=== PATIENT | male | born 1995 | race Caucasian/White ===

== ENCOUNTER 2016-11-21 23:21 | Inpatient (IN) | payer OTHER ==
[~2016-11-21] VITALS: Ht 182.9 cm; Wt 78.5 kg
[2016-11-21 23:23] VITALS: BP 123/73; PULSE 101; RESP 20; RESP 38; TEMP 98.7; O2SAT 94
[2016-11-21] MEDS ORDERED: SODIUM CHLORIDE 0.9% FLUSH 10 ML FLUSH IVF PRN (23:30)
[2016-11-21] MEDS ORDERED: AMMONIA AROMATIC INHALANT 0.33 ML NASAL ONE ×2 (23:30)
[2016-11-22] VITALS (20 sets, daily range): BP systolic 85–131; BP diastolic 47–101; PULSE 81–121; RESP 14–23; TEMP 97.9–98.9; O2SAT 92–100
[2016-11-22 00:06] LABS: AUTOMATED NEUTROPHIL # 9.5 TH/MM3 (1.8-7.7); BASOPHIL # 0.1 TH/MM3 (0-0.2); BASOPHIL % 0.8 % (0.0-2.0); EOSINOPHIL # 0.2 TH/MM3 (0-0.4); EOSINOPHIL % 1.1 % (0.0-4.0); HEMATOCRIT 43.1 % (39.0-51.0); HEMO FLAGS DIFF FINAL; LYMPH % 18.4 % (9.0-44.0); LYMPHOCYTE # 2.5 TH/MM3 (1.0-4.8); MEAN CELL VOLUME 90.7 FL (80.0-100.0); MEAN CORPUSCULAR HEMOGLOBIN 30.1 PG (27.0-34.0); MEAN CORPUSCULAR HGB CONC 33.2 % (32.0-36.0); MONO % 10.5 % (0.0-8.0); NEUT % 69.2 % (16.0-70.0); PLATELET COUNT 265 TH/MM3 (150-450); RED BLOOD COUNT 4.76 MIL/MM3 (4.50-5.90); WHITE BLOOD COUNT 13.7 TH/MM3 (4.0-11.0)
--- NOTE | 2016-11-22 00:09 | RADRPT ---
EXAM DATE/TIME: 11/21/2016 23:54 [facility] COMPARISON: No previous studies available for comparison. INDICATIONS : Altered mental status. RADIATION DOSE: 43.04 CTDIvol (mGy) MEDICAL HISTORY : Non-responsive. SURGICAL HISTORY : Non-responsive. ENCOUNTER: Initial ACUITY: 1 day PAIN SCALE: Non-responsive LOCATION: cranial TECHNIQUE: Multiple contiguous axial images were obtained of the head. Using automated exposure control and adj ustment of the mA and/or kV according to patient size, radiation dose was kept as low as reasonably a chievable to obtain optimal diagnostic quality images. FINDINGS: CEREBRUM: The ventricles are normal for age. No evidence of midline shift, mass lesion, hemorrhage or acute in farction. No extra-axial fluid collections are seen. POSTERIOR FOSSA: The cerebellum and brainstem are intact. The 4th ventricle is midline. The cerebellopontine angle i s unremarkable. EXTRACRANIAL: The visualized portion of the orbits is intact. Chronic bilateral sinus disease in the maxillary, eth moid and sphenoid sinuses. SKULL: The calvaria is intact. No evidence of skull fracture. CONCLUSION: 1. Unremarkable CT scan of the brain. 2. Chronic pansinusitis of the maxillary, ethmoid and sphenoid sinuses. Rodolfo Pardo MD on November 22, 2016 at 0:06 Board Certified Radiologist. This report was verified electronically.
[2016-11-22 00:11] LABS: AMPHETAMINE, URINE NEG (NEG); BARBITURATES, URINE NEG (NEG); COCAINE, URINE NEG (NEG)
[2016-11-22 00:20] LABS: BLOOD UREA NITROGEN 9 MG/DL (7-18); GLOMERULAR FILTRATION RATE 86 ML/MIN (>89)
[2016-11-22 00:21] LABS: ALKALINE PHOSPHATASE 61 U/L (45-117); ALT (GPT) 23 U/L (12-78); ANION GAP 9 MEQ/L (5-15); AST (GOT) 34 U/L (15-37); BICARBONATE 24.8 MEQ/L (21.0-32.0); CHLORIDE 109 MEQ/L (98-107); SODIUM (NA) 143 MEQ/L (136-145); TOTAL BILIRUBIN ADULT 0.2 MG/DL (0.2-1.0)
[2016-11-22 00:22] LABS: ACETAMINOPHEN LESS THAN 2.0 MCG/ML (10.0-30.0)
[2016-11-22 00:23] LABS: POTASSIUM 2.9 MEQ/L (3.5-5.1)
[2016-11-22] MEDS ORDERED: SODIUM CHLOR 0.9% 1000 ML INJ 1,000 ML IV ONE (00:30)
--- NOTE | 2016-11-22 00:37 | PD ---
HPI Chief Complaint: Alcohol/Drug Intoxication Time Seen by Provider: 23:24 Travel History International Travel<30 days: No Contact w/Intl Traveler<30days: No Traveled to known affect area: No History of Present Illness HPI Patient is a young, approximately 20s to [id number] male who presents the emergency department via EMS. Patient was apparently seen walking around [facility] in [facility]. He was arrested by police. Shortly after patient was arrested he became unresponsive. Per EMS there is no report of any struggle with police. Patient was unresponsive and EMS had concerns that he may be feigning his symptoms as when they raised patient's arm above his head and dropped it the patient avoided hitting his face. Patient smelled heavily of alcohol on scene and was reportedly seen drinking alcohol prior to EMS dispatch. Patient is unresponsive at this time and not able to participate her history or physical exam. Blood glucose normal. 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 HEAD: Atraumatic. Normocephalic. EYES: Pupils equal and round. 5-6 mm. No scleral icterus. No injection or drainage. ENT: No nasal bleeding or discharge. Mucous membranes pink and moist. NECK: Supple without midline tenderness to palpation CARDIOVASCULAR: Regular rate and rhythm. No murmur appreciated. RESPIRATORY: Tachypneic, but clear to auscultation bilaterally. No respiratory distress. GASTROINTESTINAL: Abdomen soft, non-tender, nondistended. MUSCULOSKELETAL: No obvious deformities. No edema. NEUROLOGICAL: GCS 3. Patient grimaces with ammonia capsules to the nares. However protecting airway with intact gag reflex. PSYCHIATRIC: Deferred given mental status Data Data Last Documented VS Vital Signs Date Time Temp Pulse Resp B/P Pulse Ox O2 Delivery O2 Flow Rate FiO2 11/22/16 02:33 96 17 119/57 98 Ventilator 50 11/21/16 23:23 98.7 Orders Electrocardiogram (11/21/16 23:24) Ammonia (11/21/16 23:24) Complete Blood Count With Diff (11/21/16 23:24) Comprehensive Metabolic Panel (11/21/16 23:24) Ct Brain W/O Iv Contrast(Rout) (11/21/16 23:24) Blood Glucose (11/21/16 23:24) Ecg Monitoring (11/21/16 23:24) Iv Access Insert/Monitor (11/21/16:) Oximetry (11/21/16 23:24) Sodium Chloride 0.9% Flush (Ns Flush) (11/21/16 23:30) Drug Screen, Random Urine (11/21/16:) Alcohol (Ethanol) (11/21/16:) Salicylates (Aspirin) (11/21/16 23:24) Tylenol (Acetaminophen) (11/21/16 23:24) Ammonia Aromatic Inhalant (Aromatic Ammo (11/21/16 23:30) Ammonia Aromatic Inhalant (Aromatic Ammo (11/21/16 23:30) Potassium Chlor 20 Meq Premix (Kcl 20 Me (11/22/16 00:30) Sodium Chlor 0.9% 1000 Ml Inj (Ns 1000 M (11/22/16 00:30) Lactic Acid Sepsis Protocol (11/22/16 01:36) Urinalysis - C+S If Indicated (11/22/16 01:36) Blood Culture (11/22/16 01:36) Chest, Single Ap (11/22/16 01:36) Arterial Blood Gas (Abg) (11/22/16 01:36) Ng Gastric Tube Insert/Monitor (11/22/16 01:36) Urinary Catheter Insert/Apply (11/22/16 01:36) Etomidate Inj (Amidate Inj) (11/22/16 01:45) Succinylcholine Inj (Quelicin Inj) (11/22/16 01:45) Sodium Chloride 0.9% Flush (Ns Flush) (11/22/16 01:45) Restraints Non-Violent YANIV.Q3H (11/22/16 01:36) Lactulose Liq (Lactulose Liq) (11/22/16 02:00) Admit Order (Ed Use Only) (11/22/16 02:51) Labs Laboratory Tests Test 11/21/16 11/21/16 11/22/16 11/22/16 23:40 23:48 01:41 02:20 White Blood Count 13.7 TH/MM3 Red Blood Count 4.76 MIL/MM3 Hemoglobin 14.3 GM/DL Hematocrit 43.1 % Mean Corpuscular Volume 90.7 FL Mean Corpuscular Hemoglobin 30.1 PG Mean Corpuscular Hemoglobin 33.2 % Concent Red Cell Distribution Width 14.0 % Platelet Count 265 TH/MM3 Mean Platelet Volume 8.5 FL Neutrophils (%) (Auto) 69.2 % Lymphocytes (%) (Auto) 18.4 % Monocytes (%) (Auto) 10.5 % Eosinophils (%) (Auto) 1.1 % Basophils (%) (Auto) 0.8 % Neutrophils # (Auto) 9.5 TH/MM3 Lymphocytes # (Auto) 2.5 TH/MM3 Monocytes # (Auto) 1.4 TH/MM3 Eosinophils # (Auto) 0.2 TH/MM3 Basophils # (Auto) 0.1 TH/MM3 CBC Comment DIFF FINAL Differential Comment Sodium Level 143 MEQ/L Potassium Level 2.9 MEQ/L Chloride Level 109 MEQ/L Carbon Dioxide Level 24.8 MEQ/L Anion Gap 9 MEQ/L Blood Urea Nitrogen 9 MG/DL Creatinine 0.78 MG/DL Estimat Glomerular Filtration 86 ML/MIN Rate Random Glucose 113 MG/DL Calcium Level 8.4 MG/DL Total Bilirubin 0.2 MG/DL Aspartate Amino Transf 34 U/L (AST/SGOT) Alanine Aminotransferase 23 U/L (ALT/SGPT) Alkaline Phosphatase 61 U/L Ammonia 75 MCMOL/L Total Protein 7.3 GM/DL Albumin 3.9 GM/DL Salicylates Level 1.8 MG/DL Acetaminophen Level LESS THAN 2.0 MCG/ML Ethyl Alcohol Level 496 MG/DL Urine Color COLORLESS Urine Turbidity CLEAR Urine pH 6.0 Urine Specific [place] 1.004 Urine Protein NEG mg/dL Urine Glucose (UA) NEG mg/dL Urine Ketones NEG mg/dL Urine Occult Blood NEG Urine Nitrite NEG Urine Bilirubin NEG Urine Urobilinogen LESS THAN 2.0 MG/DL Urine Leukocyte Esterase NEG Urine RBC LESS THAN 1 /hpf Urine Hyaline Casts 1 /lpf Microscopic Urinalysis Comment CATH-CULT NOT IND Urine Opiates Screen NEG Urine Barbiturates Screen NEG Urine Amphetamines Screen NEG Urine Benzodiazepines Screen NEG Urine Cocaine Screen NEG Urine Cannabinoids Screen POS Lactic Acid Level 1.2 mmol/L Blood Gas Puncture Site RT BRACHIAL Blood Gas Patient Temperature 98.6 Blood Gas HCO3 23 mmol/L Blood Gas Base Excess -1.9 mmol/L Blood Gas Oxygen Saturation 94 % Arterial Blood pH 7.33 Arterial Blood Partial 46 mmHg Pressure CO2 Arterial Blood Partial 113 mmHG Pressure O2 Arterial Blood Oxygen Content 19.3 Vol % Arterial Blood 3.5 % Carboxyhemoglobin Arterial Blood Methemoglobin 0.8 % Blood Gas Hemoglobin 14.6 G/DL Oxygen Delivery Device VENTILATOR Blood Gas Ventilator Setting AC 14/550/5PEEP Blood Gas Inspired Oxygen 50 % [facility] Medical Decision Making Medical Screen Exam Complete: Yes Emergency Medical Condition: Yes Medical Record Reviewed: Yes Differential Diagnosis Young male here with altered mental status after resting arrested by police. Differential includes alcohol intoxication, closed head injury, skull fracture, ICH, overdose, electrolyte abnormality, hyperammonemia, and less likely feigning symptoms. Narrative Course Patient placed on monitor, IV established and blood obtained. A twelve-lead EKG shows sinus tachycardia, rate 102. No notable ST abnormalities, normal intervals. Ammonia capsules to the naris produces minimal facial grimacing. Patient however is protecting his airway at this time with intact gag reflex when tested with tongue depressor. CT of the brain was obtained and shows no acute abnormalities. CBC, CMP, ammonia, blood alcohol level, aspirin, Tylenol level, urine drug screen were obtained and notable for WBC 13.7. Potassium 2.9. He was replaced with 40 mEq IV. Ammonia slightly elevated at 75. Positive urine cannabinoids. Blood alcohol level 496. Patient does have leukocytosis and tachypnea, mild tachycardia, altered mental status however my suspicion for sepsis is low at this time given his alcohol intoxication and clinical history. No evidence of nuchal rigidity on exam to warrant lumbar puncture. Over the course of the next hour patient's respirations became more labored and tachypneic, heart rate increased into the 120s. Gag reflexes now no longer present. Patient was intubated, please see procedure note. Postintubation chest x-ray shows endotracheal tube in good position. Patient was given lactulose through OG tube. Lactate, urinalysis, blood cultures, ABG were added on to laboratory testing. ABG 7.33, PCO2 46, PO2 113, bicarbonate 23. Lactate normal 1.2. Urinalysis unremarkable. Patient will be admitted for further management. Critical Care Narrative Aggregate critical care time was 50 minutes. Time to perform other separately billable procedures was not included in the critical care time. My time did not include minutes spent treating any other patients simultaneously or on activities that did not directly contribute to the patient's treatment. The services I provided to this patient were to treat and/or prevent clinically significant deterioration that could result in: Cardiopulmonary decompensation, , disability I provided critical care services requiring my management, as noted below: Chart data review, documentation time, medication orders and management, vital sign assessments/reviewing monitor data, ordering and reviewing lab tests, ordering and interpreting/reviewing x-rays and diagnostic studies, care of the patient and discussion of the patient with the admitting physicians. Procedures Procedure Narrative Risks and benefits were not discussed given an emergent condition and altered mental status: INTUBATION: The patient was put in optimal position for the procedure. Rapid sequence intubation was initiated by me using 20 milligrams of etomidate IV and 150] milligrams of succinylcholine IV. The patient was intubated with a 8-0 cuffed endotracheal tube. Tube placement was confirmed by visualization of the tube and balloon passing through the cords, capnometry and subsequent chest x- ray. Breath sounds were equal and well aerated bilaterally postintubation. No breath sounds over stomach. Patient tolerated procedure well. Diagnosis Primary Impression: Acute respiratory failure Qualified Code: J96.01 - Acute respiratory failure with hypoxia Additional Impression: Alcohol intoxication Qualified Code: F10.920 - Alcohol intoxication, uncomplicated Admitting Information Admitting Physician Requests: Admit Zora Castrejon MD November 22, 2016 00:37
[2016-11-22] MEDS: POTASSIUM CHLOR 20 MEQ PREMIX 100 ML IV SCH ×2 (00:40→03:05)
[2016-11-22] MEDS ORDERED: ETOMIDATE 20 MG/10 ML VIAL IVP ONE (01:45)
[2016-11-22] MEDS ORDERED: SUCCINYLCHOLINE CHLORIDE 200 MG/10 ML VIAL IVP ONE (01:45)
[2016-11-22] MEDS ORDERED: SODIUM CHLORIDE 0.9% FLUSH 10 ML FLUSH IVF PRN (01:45)
[2016-11-22] MEDS ORDERED: LACTULOSE SYRUP 20 GM/30 ML CUP OG-TUBE ONE (02:00)
--- NOTE | 2016-11-22 02:18 | RADRPT ---
EXAM DATE/TIME: 11/22/2016 01:48 [facility] COMPARISON: No previous studies available for comparison. INDICATIONS : Post intubation. MEDICAL HISTORY : Unobtainable. SURGICAL HISTORY : Unobtainable. ENCOUNTER: Initial ACUITY: 1 day PAIN SCORE: Non-responsive. LOCATION: Bilateral chest FINDINGS: A single view of the chest demonstrates the lungs to be symmetrically aerated without evidence of mas s, infiltrate or effusion. The endotracheal tube and NG tube are in good position. No evidence of pn eumothorax. The cardiomediastinal contours are unremarkable. Osseous structures are intact. CONCLUSION: 1. ET tube and NG tube are in good position. 2. No pneumothorax. 3. The lungs are grossly clear. Rodolfo Pardo MD on November 22, 2016 at 2:16 Board Certified Radiologist. This report was verified electronically.
[2016-11-22 02:28] LABS: BLOOD, URINE NEG (NEG); GLUCOSE,URINE NEG (NEG); HYALINE CAST, URINE 1 /lpf (RARE); KETONE, URINE NEG (NEG); NITRITE,URINE NEG (NEG); URINE COLOR COLORLESS (YELLW/STRAW)
[2016-11-22 02:29] LABS: COMMENT (UR) CATH-CULT NOT IND; CULTURE IF INDICATED CATH CULTURE NOT IND
[2016-11-22 02:30] LABS: BLOOD GAS BASE EXCESS -1.9 mmol/L (-2-2); BLOOD GAS CARBOXYHEMOGLOBIN 3.5 % (0-4); BLOOD GAS HCO3 23 mmol/L (22-26); BLOOD GAS METHEMOGLOBIN 0.8 % (0-2); BLOOD GAS O2 HGB SATURATION 94 % (90-100); BLOOD GAS OXYGEN CONTENT 19.3 Vol % (12.0-20.0); BLOOD GAS PCO2 46 mmHg (38-42); BLOOD GAS PO2 113 mmHG (61-120); BLOOD GAS TOTAL HGB 14.6 G/DL (12.0-16.0); CRITICAL VALUE NO; DRAW SITE RT BRACHIAL; FIO2 50 %; NUMBER OF ARTERIAL PUNCTURES 1; OXYGEN DEVICE VENTILATOR; STAT YES; TEMP CORR TO 98.6; ULNAR PULSE PRESENT; VENT SETTINGS AC 14/550/5PEEP
[2016-11-22] MEDS ORDERED: FLUMAZENIL 0.5 MG/5 ML VIAL IV PUSH PRN (03:30)
[2016-11-22] MEDS ORDERED: LORazepam 2 MG TAB PO PRN (03:30)
[2016-11-22] MEDS ORDERED: ACETAMINOPHEN 325 MG TAB PO PRN (03:30)
[2016-11-22] MEDS ORDERED: LORazepam 2 MG/ML VIAL IV PRN (03:30)
[2016-11-22] MEDS ORDERED: METOCLOPRAMIDE HCL 10 MG/2 ML VIAL IV PRN (03:30)
[2016-11-22] MEDS ORDERED: LORazepam 1 MG TAB PO PRN (03:30)
[2016-11-22] MEDS ORDERED: MORPHINE SULFATE 4 MG/ML INJ IV PRN (03:30)
[2016-11-22] MEDS ORDERED: MISCELLANEOUS NURSING INFORMATION XX SCH (03:30)
[2016-11-22] MEDS ORDERED: SODIUM CHLORIDE 0.9% FLUSH 10 ML FLUSH PRN (03:30)
[2016-11-22] MEDS ORDERED: CHLORHEXIDINE GLUCONATE 2 % 1 PACK (2 CLOTHS) TOP PRN (03:30)
[2016-11-22] MEDS ORDERED: LORazepam 2 MG/ML VIAL IV PUSH PRN ×2 (03:30)
[2016-11-22] MEDS ORDERED: ONDANSETRON HCL 4 MG/2 ML VIAL IV PRN (03:30)
[2016-11-22] MEDS ORDERED: PROPOFOL 1000 MG/100 ML INJ 100 ML IV SCH (03:30)
[2016-11-22] MEDS ORDERED: RESP: ALBUTEROL 2.5 MG/IPRATROPIUM 0.5 MG NEB (PRN) INH (03:30)
[2016-11-22] MEDS: CHLORHEXIDINE GLUCONATE 2 % 1 PACK (2 CLOTHS) TOP SCH (04:00)
--- NOTE | 2016-11-22 04:05 | HHI.HP ---
HPI Service Critical Care Medicine Primary Care Physician Unknown Admission Diagnosis acute respiratory failure, alcohol intoxication Diagnosis: Travel History International Travel<30 Days: No Contact w/Intl Traveler <30 Da: No Traveled to Known Affected Are: No History of Present Illness 20s to [id number] gentleman presents via EMS. Patient was seen walking around [facility] in [facility]. He was arrested by police for alcohol intoxication at public place. Shortly after he became unresponsive. In the emergency department he was found to be GCS 3 and was intubated by ED attending for an airway protection. Review of Systems ROS Unable to obtain patient is sedated and intubated Past Family Social History Allergies: Coded Allergies: UNOBTAINABLE (Unverified , 11/21/16) Past Medical History Unobtainable Past Surgical History Unobtainable Reported Medications Reported Meds & Active Scripts Active Active Prescriptions or Reported Medications Unobtainable Active Ordered Medications Current Medications Medications (Trade) Dose Ordered Sig/Gregg Route PRN Reason Start Time Stop Time Status Last Admin Dose Admin Sodium Chloride 2 ml 2 ml UNSCH PRN IVF FLUSH AFTER USING IV ACCESS 11/21/16 23:30 Potassium Chloride (KCl 20 Meq Premix Inj) 100 ml @ 50 mls/hr Q2H IV 11/22/16 00:30 11/22/16 04:29 11/22/16 03:05 Sodium Chloride 2 ml 2 ml UNSCH PRN IVF FLUSH AFTER USING IV ACCESS 11/22/16 01:45 Sodium Chloride (NS 1000 ml Inj) 1,000 ml @ 150 mls/hr Q6H40M IV 11/22/16 03:17 Sodium Chloride (NS Flush) 2 ml UNSCH PRN .XX FLUSH AFTER USING IV ACCESS 11/22/16 03:30 Sodium Chloride (NS Flush) 2 ml BID .XX 11/22/16 09:00 Acetaminophen (Tylenol) 650 mg Q6H PRN PO PAIN 1-10 AND/OR FEVER >101F 11/22/16 03:30 Morphine Sulfate (Morphine Inj) 2 mg Q2H PRN IV PAIN SCALE 6 TO 10 11/22/16 03:30 Pantoprazole Sodium (Protonix Inj) 40 mg DAILY IV 11/22/16 09:00 Lorazepam (Ativan Inj) 1 mg Q1H PRN IV Agitation/Sedation 11/22/16 03:30 Ondansetron HCl (Zofran Inj) 4 mg Q6H PRN IV NAUSEA OR VOMITING 11/22/16 03:30 Metoclopramide HCl (Reglan Inj) 10 mg Q6H PRN IV NAUSEA OR VOMITING 11/22/16 03:30 Docusate Sodium (Colace Liq) 100 mg Q12H G-TUBE 11/22/16 03:30 Heparin Sodium (Porcine) (Heparin Inj) 5,000 units Q8H SQ 11/22/16 03:30 Miscellaneous Information 1 Q361D XX 11/22/16 03:30 Chlorhexidine Gluconate (Chlorhexidine 2% Cloth) 3 pack Taper DAILY@04 TOP 11/22/16 04:00 11/18/17 03:59 Chlorhexidine Gluconate 3 pack 3 pack UNSCH PRN TOP HYGIENIC CARE 11/22/16 03:30 Propofol 100 ml @ 0 mls/hr TITRATE IV 11/22/16 03:30 Multivitamins/ Thiamine HCl/ Folic Acid/Sodium Chloride (Mvi-12 Inj/ Thiamine Inj/ Folvite Inj/1/2 NS 500 ml Inj) 511.2 ml @ 125 mls/hr Q24H IV 11/22/16 05:30 Flumazenil (Romazicon Inj) 0.2 mg Q1M PRN IV PUSH SEE LABEL COMMENTS 11/22/16 03:30 Lorazepam (Ativan) 1 mg Q4H PRN PO CIWA 8 - 10 11/22/16 03:30 Lorazepam (Ativan Inj) 1 mg Q4H PRN IV PUSH CIWA 8 - 10 11/22/16 03:30 Lorazepam (Ativan) 2 mg Q2H PRN PO CIWA 11-14 11/22/16 03:30 Lorazepam (Ativan Inj) 2 mg Q2H PRN IV PUSH CIWA 11-14 11/22/16 03:30 Lorazepam (Ativan Inj) 2 mg Q1H PRN IV PUSH CIWA 15-20 11/22/16 03:30 Lorazepam (Ativan Inj) 2 mg Q15M PRN IV PUSH CIWA > 20 11/22/16 03:30 Family History Unobtainable Social History Unobtainable Physical Exam Vital Signs Vital Signs Date Time Temp Pulse Resp B/P Pulse Ox O2 Delivery O2 Flow Rate FiO2 11/22/16 03:40 93 14 118/55 98 5/14/17 03:07 93 14 118/58 98 Ventilator 50 11/22/16 02:33 96 17 119/57 98 Ventilator 50 11/22/16 02:21 96 15 114/54 98 Ventilator 50 11/22/16 02:08 100 17 123/58 96 Ventilator 50 11/22/16 01:55 121 14 131/67 100 Ventilator 50 11/22/16 01:50 97 50 11/22/16 01:45 50 11/21/16 23:23 98.7 101 38 123/73 94 Physical Exam GENERAL: Well-nourished, well-developed patient. Today and intubated SKIN: Warm and dry. HEAD: Normocephalic. EYES: No scleral icterus. No injection or drainage. NECK: Supple, trachea midline. No JVD or lymphadenopathy. CARDIOVASCULAR: Regular rate and rhythm without murmurs, gallops, or rubs. RESPIRATORY: Breath sounds equal bilaterally. No accessory muscle use. GASTROINTESTINAL: Abdomen soft, non-tender, nondistended. MUSCULOSKELETAL: No cyanosis, or edema. BACK: Nontender without obvious deformity. No CVA tenderness. EXTREMITIES: No clubbing cyanosis or edema Laboratory Laboratory Tests Test 11/21/16 11/21/16 11/22/16 11/22/16 23:40 23:48 01:41 02:20 White Blood Count 13.7 Red Blood Count 4.76 Hemoglobin 14.3 Hematocrit 43.1 Mean Corpuscular Volume 90.7 Mean Corpuscular Hemoglobin 30.1 Mean Corpuscular Hemoglobin 33.2 Concent Red Cell Distribution Width 14.0 Platelet Count 265 Mean Platelet Volume 8.5 Neutrophils (%) (Auto) 69.2 Lymphocytes (%) (Auto) 18.4 Monocytes (%) (Auto) 10.5 Eosinophils (%) (Auto) 1.1 Basophils (%) (Auto) 0.8 Neutrophils # (Auto) 9.5 Lymphocytes # (Auto) 2.5 Monocytes # (Auto) 1.4 Eosinophils # (Auto) 0.2 Basophils # (Auto) 0.1 CBC Comment DIFF FINAL Differential Comment Sodium Level 143 Potassium Level 2.9 Chloride Level 109 Carbon Dioxide Level 24.8 Anion Gap 9 Blood Urea Nitrogen 9 Creatinine 0.78 Estimat Glomerular Filtration 86 Rate Random Glucose 113 Calcium Level 8.4 Total Bilirubin 0.2 Aspartate Amino Transf 34 (AST/SGOT) Alanine Aminotransferase 23 (ALT/SGPT) Alkaline Phosphatase 61 Ammonia 75 Total Protein 7.3 Albumin 3.9 Salicylates Level 1.8 Acetaminophen Level LESS THAN 2.0 Ethyl Alcohol Level 496 Urine Color COLORLESS Urine Turbidity CLEAR Urine pH 6.0 Urine Specific [place] 1.004 Urine Protein NEG Urine Glucose (UA) NEG Urine Ketones NEG Urine Occult Blood NEG Urine Nitrite NEG Urine Bilirubin NEG Urine Urobilinogen LESS THAN 2.0 Urine Leukocyte Esterase NEG Urine RBC LESS THAN 1 Urine Hyaline Casts 1 Microscopic Urinalysis Comment CATH-CULT NOT IND Urine Opiates Screen NEG Urine Barbiturates Screen NEG Urine Amphetamines Screen NEG Urine Benzodiazepines Screen NEG Urine Cocaine Screen NEG Urine Cannabinoids Screen POS Lactic Acid Level 1.2 Blood Gas Puncture Site RT BRACHIAL Blood Gas Patient Temperature 98.6 Blood Gas HCO3 23 Blood Gas Base Excess -1.9 Blood Gas Oxygen Saturation 94 Arterial Blood pH 7.33 Arterial Blood Partial 46 Pressure CO2 Arterial Blood Partial 113 Pressure O2 Arterial Blood Oxygen Content 19.3 Arterial Blood 3.5 Carboxyhemoglobin Arterial Blood Methemoglobin 0.8 Blood Gas Hemoglobin 14.6 Oxygen Delivery Device VENTILATOR Blood Gas Ventilator Setting AC 14/550/5PEEP Blood Gas Inspired Oxygen 50 Date/Time Procedure Status Source Growth 11/22/16 01:45 Aerobic Blood Culture Received Blood Peripheral Pending 11/22/16 01:45 Anaerobic Blood Culture Received Blood Peripheral Pending Result Diagram: 11/21/16 2340 11/21/16 2340 Assessment and Plan Assessment and Plan Respiratory failure - Heavy alcohol intoxication - Intubated for an airway protection - No weaning until neurologically improved - CXR and ABG a.m. Altered mental status - Due to alcohol intoxication - Watch for withdrawal - CIWA protocol - Thiamine folate multivitamins IV - Aggressive IV fluids resuscitation DVT GI prophylaxis - Subcutaneous heparin and pantoprazole Critical Care: The total critical care time was 35 minutes. Time to perform other separately billable procedures was not included in the critical care time. Raad Palomino MD November 22, 2016 04:05
[2016-11-22] MEDS ORDERED: SODIUM PHOSPHATE INJ 30 MMOL in SODIUM CHLOR 0.9% 250 ML INJ 240 ML IV PRN (04:15)
[2016-11-22] MEDS ORDERED: POTASSIUM CHLORIDE 25 MEQ EFFERVESCENT TAB PO PRN (04:15)
[2016-11-22] MEDS ORDERED: POTASSIUM PHOSPHATE MONOBASIC 500 MG TAB PO/TUBE PRN (04:15)
[2016-11-22] MEDS ORDERED: MAGNESIUM SULFATE INJ 2 GM in SODIUM CHLORIDE 0.9% INJ 96 ML IV PRN (04:15)
[2016-11-22] MEDS ORDERED: POTASSIUM PHOSPHATE MONOBASIC 500 MG TAB PO PRN (04:15)
[2016-11-22] MEDS ORDERED: POTASSIUM CHLOR 20 MEQ PREMIX 100 ML IV PRN ×2 (04:15)
[2016-11-22] MEDS ORDERED: POTASSIUM CHLOR 40 MEQ PREMIX 100 ML IV PRN ×2 (04:15)
[2016-11-22] MEDS ORDERED: MAGNESIUM SULFATE INJ 4 GM in SODIUM CHLORIDE 0.9% INJ 92 ML IV PRN (04:15)
[2016-11-22] MEDS ORDERED: MAGNESIUM OXIDE 400 MG TAB PO PRN (04:15)
[2016-11-22 04:53] LABS: CKMB 2.3 NG/ML (0.5-3.6)
[2016-11-22] MEDS: DOCUSATE SODIUM 100 MG/10 ML UDC G-TUBE SCH ×2 (05:43→12:59)
[2016-11-22] MEDS: HEPARIN SODIUM - SQ 10,000 UNITS/ML VIAL SQ SCH ×3 (05:43→18:07)
[2016-11-22] MEDS: MULTIVITAMIN INJ 10 ML, THIAMINE INJ 100 MG, FOLIC ACID INJ 1 MG in SODIUM CHLOR 0.45% ... IV SCH (05:43)
[2016-11-22] MEDS: SODIUM CHLOR 0.9% 1000 ML INJ 1,000 ML IV SCH ×2 (05:44→08:59)
[2016-11-22] MEDS: SODIUM CHLORIDE 0.9% FLUSH 10 ML FLUSH SCH ×2 (08:58→21:06)
[2016-11-22] MEDS ORDERED: PANTOPRAZOLE SODIUM 40 MG VIAL IV SCH (09:00)
[2016-11-22] MEDS ORDERED: DEXMEDETOMIDINE HCL 200 MCG/2 ML VIAL ONE (12:18)
[2016-11-22] MEDS ORDERED: DEXMEDETOMIDINE INJ 1,000 MCG in SODIUM CHLOR 0.9% 250 ML INJ 240 ML IV SCH (12:30)
[2016-11-22] MEDS ORDERED: DEXMEDETOMIDINE 200 MCG in NS 50 ML IV SCH (12:30)
[2016-11-22] MEDS: LORazepam 2 MG/ML VIAL IV PUSH PRN ×3 (12:57→19:56)
[2016-11-22] MEDS: cloNIDine HCL 0.3 MG TAB PO SCH ×2 (14:29→21:00)
[2016-11-22] MEDS: chlordiazePOXIDE 25 MG CAP PO SCH ×2 (14:30→21:05)
[2016-11-22] MEDS ORDERED: HALOPERIDOL LACTATE 5 MG/ML AMP IV PRN (14:30)
[2016-11-22] MEDS ORDERED: HYDROmorphone HCL PF 1 MG/ML VIAL IV PUSH PRN (14:30)
--- NOTE | 2016-11-22 14:56 | EKG ---
Date Performed: 11/21/2016 Time Performed: 23:36:18 PTAGE: 21 years EKG: SINUS TACHYCARDIA MODERATE VOLTAGE CRITERIA FOR LVH, CONSIDER NORMAL VARIANT NONSPECIFIC ST ELEVATION ABNORMAL RHYTHM ECG NO PREVIOUS TRACING DOCTOR: Dunia Cardenas Interpretating Date/Time 11/22/2016 14:56:00
[2016-11-23] VITALS (14 sets, daily range): BP systolic 86–135; BP diastolic 48–75; PULSE 73–99; RESP 20–45; TEMP 97.8–102.2; O2SAT 91–98
[2016-11-23] MEDS: LORazepam 2 MG/ML VIAL IV PUSH PRN ×2 (00:24→00:41)
[2016-11-23] MEDS: DEXMEDETOMIDINE INJ 1,000 MCG in SODIUM CHLOR 0.9% 250 ML INJ 240 ML IV SCH ×2 (02:21→13:40)
[2016-11-23] MEDS: DOCUSATE SODIUM 100 MG/10 ML UDC G-TUBE SCH ×2 (03:48→17:20)
[2016-11-23] MEDS: HEPARIN SODIUM - SQ 10,000 UNITS/ML VIAL SQ SCH ×3 (03:48→17:26)
[2016-11-23] MEDS: CHLORHEXIDINE GLUCONATE 2 % 1 PACK (2 CLOTHS) TOP SCH (03:48)
[2016-11-23] MEDS: MULTIVITAMIN INJ 10 ML, THIAMINE INJ 100 MG, FOLIC ACID INJ 1 MG in SODIUM CHLOR 0.45% ... IV SCH (05:11)
[2016-11-23] MEDS: chlordiazePOXIDE 25 MG CAP PO SCH ×3 (05:11→21:43)
[2016-11-23] MEDS: cloNIDine HCL 0.3 MG TAB PO SCH (05:12)
[2016-11-23 05:20] LABS: AUTOMATED NEUTROPHIL # 14.5 TH/MM3 (1.8-7.7); BASOPHIL % 0.2 % (0.0-2.0); EOSINOPHIL % 0.1 % (0.0-4.0); HEMATOCRIT 39.8 % (39.0-51.0); HEMO FLAGS DIFF FINAL; LYMPH % 7.4 % (9.0-44.0); LYMPHOCYTE # 1.3 TH/MM3 (1.0-4.8); MEAN CORPUSCULAR HEMOGLOBIN 29.8 PG (27.0-34.0); MEAN CORPUSCULAR HGB CONC 33.1 % (32.0-36.0); NEUT % 82.3 % (16.0-70.0); PLATELET COUNT 214 TH/MM3 (150-450); RED BLOOD COUNT 4.42 MIL/MM3 (4.50-5.90); RED CELL DISTRIBUTION WIDTH 13.7 % (11.6-17.2); WHITE BLOOD COUNT 17.6 TH/MM3 (4.0-11.0)
[2016-11-23 05:24] LABS: ALKALINE PHOSPHATASE 62 U/L (45-117); ALT (GPT) 17 U/L (12-78); ANION GAP 7 MEQ/L (5-15); AST (GOT) 23 U/L (15-37); BICARBONATE 26.5 MEQ/L (21.0-32.0); BLOOD UREA NITROGEN 6 MG/DL (7-18); CHLORIDE 104 MEQ/L (98-107); GLOMERULAR FILTRATION RATE 150 ML/MIN (>89); MAGNESIUM 1.5 MG/DL (1.5-2.5); POTASSIUM 3.5 MEQ/L (3.5-5.1); SODIUM (NA) 137 MEQ/L (136-145); TOTAL BILIRUBIN ADULT 0.8 MG/DL (0.2-1.0)
--- NOTE | 2016-11-23 08:03 | HHI.CCPN ---
Subjective Remarks/Hospital Course 20s to [id number] gentleman presents via EMS. Patient was seen walking around [facility] in [facility]. He was arrested by police for alcohol intoxication at public place. Shortly after he became unresponsive. In the emergency department he was found to be GCS 3 and was intubated by ED attending for an airway protection. 11/23 Patient s/p self extubation yesterday maxed out on Precedex drip. T 102.2 at 4 am. Objective Vital Signs Date Time Temp Pulse Resp B/P Pulse Ox O2 Delivery O2 Flow Rate FiO2 11/23/16 06:00 79 11/23/16 04:00 102.2 45 121/62 91 11/22/16 19:47 21 11/22/16 12:10 Nasal Cannula 4 Intake and Output 11/22/16 11/22/16 11/23/16 08:00 16:00 00:00 Intake Total 775 ml 1749 ml 2800 ml Output Total 3300.0 ml 1175 ml 350 ml Balance -2525.0 ml 574 ml 2450 ml Result Diagram: 11/23/16 0421 11/23/16 0421 Other Results Laboratory Tests Test 11/23/16 04:21 White Blood Count 17.6 TH/MM3 Red Blood Count 4.42 MIL/MM3 Hemoglobin 13.1 GM/DL Hematocrit 39.8 % Mean Corpuscular Volume 90.0 FL Mean Corpuscular Hemoglobin 29.8 PG Mean Corpuscular Hemoglobin 33.1 % Concent Red Cell Distribution Width 13.7 % Platelet Count 214 TH/MM3 Mean Platelet Volume 8.4 FL Neutrophils (%) (Auto) 82.3 % Lymphocytes (%) (Auto) 7.4 % Monocytes (%) (Auto) 10.0 % Eosinophils (%) (Auto) 0.1 % Basophils (%) (Auto) 0.2 % Neutrophils # (Auto) 14.5 TH/MM3 Lymphocytes # (Auto) 1.3 TH/MM3 Monocytes # (Auto) 1.8 TH/MM3 Eosinophils # (Auto) 0.0 TH/MM3 Basophils # (Auto) 0.0 TH/MM3 CBC Comment DIFF FINAL Differential Comment Sodium Level 137 MEQ/L Potassium Level 3.5 MEQ/L Chloride Level 104 MEQ/L Carbon Dioxide Level 26.5 MEQ/L Anion Gap 7 MEQ/L Blood Urea Nitrogen 6 MG/DL Creatinine 0.67 MG/DL Estimat Glomerular Filtration 150 ML/MIN Rate Random Glucose 95 MG/DL Calcium Level 7.9 MG/DL Phosphorus Level 1.1 MG/DL Magnesium Level 1.5 MG/DL Total Bilirubin 0.8 MG/DL Aspartate Amino Transf 23 U/L (AST/SGOT) Alanine Aminotransferase 17 U/L (ALT/SGPT) Alkaline Phosphatase 62 U/L Total Protein 6.3 GM/DL Albumin 3.2 GM/DL Imaging Last Impressions Chest X-Ray 11/22/16 0136 Signed Impressions: Service Date/Time: Tuesday, November 22, 2016 01:48 - CONCLUSION: 1. ET tube and NG tube are in good position. 2. No pneumothorax. 3. The lungs are grossly clear. Rodolfo Pardo MD Head CT 11/21/16 [id number] Signed Impressions: Service Date/Time: Monday, November 21, 2016 23:54 - CONCLUSION: 1. Unremarkable CT scan of the brain. 2. Chronic pansinusitis of the maxillary, ethmoid and sphenoid sinuses. Rodolfo Pardo MD Objective Remarks GENERAL: Patient is 21 yo lying in bed in NAD. SKIN: Warm and dry. HEAD: Normocephalic. EYES: No scleral icterus. No injection or drainage. NECK: Supple, trachea midline. No JVD or lymphadenopathy. CARDIOVASCULAR: Regular rate and rhythm without murmurs, gallops, or rubs. RESPIRATORY: Breath sounds equal bilaterally. No accessory muscle use. GASTROINTESTINAL: Abdomen soft, non-tender, nondistended. MUSCULOSKELETAL: No cyanosis, or edema. Neuro: On Precedex drip A/P Assessment and Plan 1)Respiratory failure- self extubated 11/22 2)ETOH intoxication 3)Altered mental status - Due to alcohol intoxication 4)Leukocytosis 5)?Hep C 6)Fevers Neuro: Wean off Precedex drip and monitor neuro status UDS+ Cannabinoids. On Librium 50mg Q8, CIWA protocol. Place on Lactulose 15ml TID monitor Ammonia level ( NH4 level 75 on ) Continue with Thiamine/Folic acid Pulm: Continue with oxygen keep sat >92% Aspiration precautions, check CXR CV: Monitor HR and BP keep MAP>65mmHg : Monitor renal function, I/O's, electrolytes replacement per protocol. Will need Phos replacement today. ID: Place on empiric abx ( Zosyn) Monitor for signs of infections ( Fever, WBC) follow up on BC from 11/21. Check sputum cx GI: Speech eval, diet per speech Heme: Monitor CBC Endo: SSI if needed for glycemic control GI prophylaxis- on Protonix DVT prophylaxis- On Heparin SQ Level 3 Kem Silver MD November 23, 2016 08:03
--- NOTE | 2016-11-23 08:22 | RADRPT ---
EXAM DATE/TIME: 11/23/2016 08:04 [place] COMPARISON: CHEST SINGLE AP, November 22, 2016, 1:48. INDICATIONS : Fever. MEDICAL HISTORY : None. SURGICAL HISTORY : None. ENCOUNTER: Subsequent ACUITY: 2 days PAIN SCORE: Non-responsive. LOCATION: Bilateral chest FINDINGS: A single portable frontal view of the chest shows a right lower lobe infiltrate. This is new from the prior study. Left lung is clear. No effusions. Heart is normal in size. Bony structures are unremark able. CONCLUSION: New right lower lobe infiltrate likely infectious in etiology. Ba Palacios Jr., MD on November 23, 2016 at 8:19 Board Certified Radiologist. This report was verified electronically.
[2016-11-23] MEDS: FOLIC ACID 1 MG TAB PO SCH (08:34)
[2016-11-23] MEDS: LACTULOSE SYRUP 20 GM/30 ML CUP PO SCH ×3 (08:34→17:25)
[2016-11-23] MEDS: MULTIVITAMIN TAB PO SCH (08:35)
[2016-11-23] MEDS: THIAMINE HCL 100 MG TAB PO SCH (08:35)
[2016-11-23] MEDS: PIPERACIL-TAZO 4.5 GM PREMIX 100 ML IV SCH ×3 (08:35→21:44)
[2016-11-23] MEDS: SODIUM CHLORIDE 0.9% FLUSH 10 ML FLUSH SCH ×2 (08:36→21:43)
[2016-11-24] VITALS (7 sets, daily range): BP systolic 105–125; BP diastolic 54–65; PULSE 79–98; RESP 16–22; TEMP 97.2–100; O2SAT 92–97
[2016-11-24] MEDS: DEXMEDETOMIDINE INJ 1,000 MCG in SODIUM CHLOR 0.9% 250 ML INJ 240 ML IV SCH (00:07)
[2016-11-24] MEDS: PIPERACIL-TAZO 4.5 GM PREMIX 100 ML IV SCH ×2 (03:03→07:45)
[2016-11-24] MEDS: DOCUSATE SODIUM 100 MG/10 ML UDC G-TUBE SCH ×2 (03:04→13:56)
[2016-11-24] MEDS: HEPARIN SODIUM - SQ 10,000 UNITS/ML VIAL SQ SCH ×2 (03:04→11:30)
[2016-11-24] MEDS: CHLORHEXIDINE GLUCONATE 2 % 1 PACK (2 CLOTHS) TOP SCH (03:04)
[2016-11-24] MEDS: chlordiazePOXIDE 25 MG CAP PO SCH ×2 (06:04→13:56)
[2016-11-24] MEDS: FOLIC ACID 1 MG TAB PO SCH (07:44)
[2016-11-24] MEDS: LACTULOSE SYRUP 20 GM/30 ML CUP PO SCH ×2 (07:44→13:00)
[2016-11-24] MEDS: MULTIVITAMIN TAB PO SCH (07:44)
[2016-11-24] MEDS: SODIUM CHLORIDE 0.9% FLUSH 10 ML FLUSH SCH (07:45)
[2016-11-24] MEDS: THIAMINE HCL 100 MG TAB PO SCH (07:45)
[2016-11-24] MEDS ORDERED: LEVOFLOXACIN 750 MG TAB PO ONE (10:00)
--- NOTE | 2016-11-24 10:02 | HHI.PR ---
Subjective Remarks Follow up for probable aspiration pneumonia, depression, suicidal ideations, alcoholism. Mr. Dawkins is currently doing well. He reports no fever, chills. However, he does admit to having suicidal ideations. He requests to see a psychiatrist. Objective Vitals Vital Signs Date Time Temp Pulse Resp B/P Pulse Ox O2 Delivery O2 Flow Rate FiO2 11/24/16 06:00 97 11/24/16 04:00 97.2 88 20 125/58 92 11/24/16 04:00 88 11/24/16 02:00 80 11/24/16 00:00 97.8 79 16 116/65 97 11/24/16 00:00 79 11/23/16 22:00 86 11/23/16 20:53 95 Nasal Cannula 3.00 11/23/16 20:00 98.3 79 20 120/62 96 11/23/16 20:00 79 11/23/16 18:00 90 11/23/16 16:00 78 11/23/16 16:00 99.3 78 24 119/55 95 11/23/16 14:00 75 11/23/16 12:00 87 11/23/16 12:00 98.0 73 22 135/75 96 11/23/16 10:00 85 I/O 11/23/16 11/23/16 11/23/16 11/24/16 11/24/16 11/24/16 07:00 15:00 23:00 07:00 15:00 23:00 Intake Total 2589 ml 1413 ml 1166 ml Output Total 2600 ml 1400 ml 1500 ml Balance -11 ml 13 ml -334 ml Intake Oral 600 ml 960 ml 720 ml IV Total 1989 ml 453 ml 446 ml Output Urine Total 2600 ml 1400 ml 1500 ml Result Diagram: 11/23/16 0421 11/23/16 0421 Imaging Last Impressions Chest X-Ray 11/23/16 0000 Signed Impressions: Service Date/Time: Wednesday, November 23, 2016 08:04 - CONCLUSION: New right lower lobe infiltrate likely infectious in etiology. Ba Palacios Jr., MD Head CT 11/21/16 2324 Signed Impressions: Service Date/Time: Monday, November 21, 2016 23:54 - CONCLUSION: 1. Unremarkable CT scan of the brain. 2. Chronic pansinusitis of the maxillary, ethmoid and sphenoid sinuses. Rodolfo Pardo MD Objective Remarks GENERAL: AOX3, NAD SKIN: Warm and dry. HEAD: Normocephalic. EYES: No scleral icterus. No injection or drainage. NECK: Supple, trachea midline. No JVD or lymphadenopathy. CARDIOVASCULAR: Regular rate and rhythm without murmurs, gallops, or rubs. RESPIRATORY: Breath sounds equal bilaterally. No accessory muscle use. GASTROINTESTINAL: Abdomen soft, non-tender, nondistended. MUSCULOSKELETAL: No cyanosis, or edema. BACK: Nontender without obvious deformity. No CVA tenderness. Procedures Intubation and self extubation A/P Problem List: (1) Acute respiratory failure ICD Code: J96.00 Status: Acute (2) Alcohol intoxication ICD Code: F10.929 Status: Acute (3) Aspiration pneumonia ICD Code: J69.0 Status: Acute Assessment and Plan Patient is a 21 year old male with a history of alcoholism who was brought to the hospital by police after he was found with alcohol intoxication. He was intubated in the ED due to GCS 3. He self extubated himself. Patient reports depression, suicidal ideations. - Acute respiratory failure - Aspiration pneumonia - Continue Zosyn - Change dosage from 4.5g to 3.375 g Q6hrs. - Add Levaquin 750mg PO Qday for atypical coverage. - Sputum cultures. - CBC pending this AM. - Possible discharge today or tomorrow on PO abx (Augmentin) if cleared by Psychiatry. - Alcohol intoxication - Suicidal ideations - Depression - Continue Librium - Wean off Precedex - Will ask Psychiatry to see him with regards to alcoholism as well as depression. - Other - D/C Coon catheter. Start Regular diet. Full code. SCDs. Problem Qualifiers (1) Acute respiratory failure: Qualified Code: J96.01 - Acute respiratory failure with hypoxia (2) Alcohol intoxication: Qualified Code: F10.920 - Alcohol intoxication, uncomplicated Zoe Tobar DO November 24, 2016 10:01
[2016-11-24 10:15] LABS: AUTOMATED NEUTROPHIL # 17.6 TH/MM3 (1.8-7.7); BASOPHIL % 0.2 % (0.0-2.0); EOSINOPHIL # 0.1 TH/MM3 (0-0.4); EOSINOPHIL % 0.4 % (0.0-4.0); HEMATOCRIT 40.1 % (39.0-51.0); HEMO FLAGS AUTO DIFF; LYMPH % 6.5 % (9.0-44.0); LYMPHOCYTE # 1.4 TH/MM3 (1.0-4.8); MEAN CELL VOLUME 88.5 FL (80.0-100.0); MEAN CORPUSCULAR HEMOGLOBIN 30.4 PG (27.0-34.0); MEAN CORPUSCULAR HGB CONC 34.4 % (32.0-36.0); MONO % 10.9 % (0.0-8.0); PLATELET COUNT 249 TH/MM3 (150-450); RED BLOOD COUNT 4.53 MIL/MM3 (4.50-5.90); RED CELL DISTRIBUTION WIDTH 13.8 % (11.6-17.2); WHITE BLOOD COUNT 21.4 TH/MM3 (4.0-11.0)
[2016-11-24 11:16] LABS: SCAN/DIFF AUTO DIFF CONFIRMED
[2016-11-24] MEDS ORDERED: PIPERACIL-TAZO 3.375 GM PREMIX 50 ML IV SCH (14:00)
[2016-11-24] MEDS ORDERED: QUEtiapine FUMARATE 25 MG TAB PO SCH (14:15)
--- NOTE | 2016-11-24 14:39 | PD.CONS ---
Provisional Diagnosis Admission Date November 22, 2016 at 02:53 [place] I. Alcohol induced mood disorder, alcohol use disorder, self reported schizophrenia [place] II. Deferred [place] III. Pneumonia History of Present Illness Service Psychiatry Consult Requested By Primary Care Physician Unknown HPI Patient is a 21 year old man, homeless, anger, unemployed, with self- reported schizophrenia, alcohol use disorder, multiple suicide attempts, no psychotropics at this moment, previous psychiatric hospitalizations, no significant medical history, who was brought to the hospital by police after he was found with alcohol intoxication. He was intubated in the ED due to GCS 3. He self extubated himself. Initial BAL was 496. He was also positive for cannabis. Diagnosed with aspiration pneumonia, on Zosyn 3.375 g Q6hrs, Levaquin 750mg PO Qday for atypical coverage. Patient reported depression and suicidal ideations in the ICU. Consulted to psychiatry for this reason. On psychiatric evaluation today patient was found his room the ICU, , very irritable, oppositional, stating that he tried to commit suicide by drinking 2 bottles or Harshil. However, patient refuses to elaborate about emotions and feelings that lead to depression. He does says that he wants to be discharged to detox program. He denies withdrawal symptoms of this moment. He denies homicidal ideation, he denies visual and auditory hallucinations. He reports daily use of marijuana, also the use of alcohol, he refused to quantify, he is say "a lot of dark alcohol". Review of Systems Constitutional: DENIES: Diaphoretic episodes, Fatigue, Fever, Weight gain, Weight loss, Chills, Dizziness, Change in appetite, Night Sweats Endocrine: DENIES: Heat/cold intolerance, Polydipsia, Polyuria, Polyphagia Eyes: DENIES: Blurred vision, Diplopia, Eye inflammation, Eye pain, Vision loss , Photosensitivity, Double Vision Ears, nose, mouth, throat: DENIES: Tinnitus, Hearing loss, Vertigo, Nasal discharge, Oral lesions, Throat pain, Hoarseness, Ear Pain, Running Nose, Epistaxis, Sinus Pain, Toothache, Odynophagia Respiratory: DENIES: Apneas, Cough, Snoring, Wheezing, Hemoptysis, Sputum production, Shortness of breath Cardiovascular: DENIES: Chest pain, Palpitations, Syncope, Dyspnea on Exertion , PND, Lower Extremity Edema, Orthopnea, Claudication Gastrointestinal: DENIES: Abdominal pain, Black stools, Bloody stools, Constipation, Diarrhea, Nausea, Vomiting, Difficulty Swallowing, Anorexia Genitourinary: DENIES: Sexual dysfunction, Urinary frequency, Urinary incontinence, Urgency, Hematuria, Dysuria, Nocturia, Penile Discharge, Testicular Pain, Testicular Swelling Musculoskeletal: DENIES: Joint pain, Muscle aches, Stiffness, Joint Swelling, Back pain, Neck pain Integumentary: DENIES: Abnormal pigmentation, Nail changes, Pruritus, Rash Hematologic/lymphatic: DENIES: Bruising, Lymphadenopathy Immunologic/allergic: DENIES: Eczema, Urticaria Neurologic: DENIES: Abnormal gait, Headache, Localized weakness, Paresthesias, Seizures, Speech Problems, Tremor, Poor Balance Psychiatric: DENIES: Anxiety, Confusion, Mood changes, Depression, Hallucinations, Agitation, Suicidal Ideation, Homicidal Ideation, Delusions Past Family Social History Coded Allergies: UNOBTAINABLE (Unverified , 11/21/16) Unable to Obtain Active Prescriptions or Reported Meds Current Medications Medications (Trade) Dose Ordered Sig/Gregg Route Start Time Stop Time Status Last Admin (NS Flush) 2 ml UNSCH PRN IVF 11/21/16 23:30 11/22/16 08:57 (NS Flush) 2 ml UNSCH PRN IVF 11/22/16 01:45 11/22/16 08:57 (NS Flush) 2 ml UNSCH PRN .XX 11/22/16 03:30 11/22/16 08:58 (NS Flush) 2 ml BID .XX 11/22/16 09:00 11/24/16 07:45 (Tylenol) 650 mg Q6H PRN PO 11/22/16 03:30 11/23/16 03:48 (Morphine Inj) 2 mg Q2H PRN IV 11/22/16 03:30 (Ativan Inj) 1 mg Q1H PRN IV 11/22/16 03:30 (Zofran Inj) 4 mg Q6H PRN IV 11/22/16 03:30 (Reglan Inj) 10 mg Q6H PRN IV 11/22/16 03:30 (Colace Liq) 100 mg Q12H G-TUBE 11/22/16 03:30 11/23/16 17:20 (Heparin Inj) 5,000 units Q8H SQ 11/22/16 03:30 11/24/16 11:30 Miscellaneous Information 1 Q361D XX 11/22/16 03:30 11/22/16 03:30 (Chlorhexidine 2% Cloth) 3 pack Taper DAILY@04 TOP 11/22/16 04:00 11/18/17 03:59 11/24/16 03:04 (Chlorhexidine 2% Cloth) 3 pack UNSCH PRN TOP 11/22/16 03:30 (Romazicon Inj) 0.2 mg Q1M PRN IV PUSH 11/22/16 03:30 (Ativan) 1 mg Q4H PRN PO 11/22/16 03:30 (Ativan Inj) 1 mg Q4H PRN IV PUSH 11/22/16 03:30 (Ativan) 2 mg Q2H PRN PO 11/22/16 03:30 (Ativan Inj) 2 mg Q2H PRN IV PUSH 11/22/16 03:30 11/23/16 00:24 (Ativan Inj) 2 mg Q1H PRN IV PUSH 11/22/16 03:30 Lorazepam 2 mg 2 mg Q15M PRN IV PUSH 11/22/16 03:30 11/23/16 00:41 Potassium Chloride 100 ml @ 50 mls/hr Q2H PRN IV 11/22/16 04:15 (KCl 20 Meq Premix Inj) 100 ml @ 50 mls/hr Q2H PRN IV 11/22/16 04:15 Potassium Bicarb/ Potassium Chloride 50 meq 50 meq UNSCH PRN PO 11/22/16 04:15 Potassium Chloride 100 ml @ 25 mls/hr UNSCH PRN IV 11/22/16 04:15 Potassium Chloride 100 ml @ 50 mls/hr Q2H PRN IV 11/22/16 04:15 (Magnesium Sulfate Inj/NS Inj) 100 ml @ 50 mls/hr UNSCH PRN IV 11/22/16 04:15 Magnesium Oxide 800 mg 800 mg UNSCH PRN PO 11/22/16 04:15 (Magnesium Sulfate Inj/NS Inj) 100 ml @ 50 mls/hr UNSCH PRN IV 11/22/16 04:15 Potassium Phosphate 2000 mg 2,000 mg Q4H PRN PO 11/22/16 04:15 11/22/16 06:50 (Sodium Phosphate Inj/NS 250 ml Inj) 250 ml @ 42 mls/hr UNSCH PRN IV 11/22/16 04:15 11/23/16 08:34 Potassium Phosphate 2000 mg 2,000 mg UNSCH PRN PO/TUBE 11/22/16 04:15 (Precedex Inj/NS 250 ml Inj) 250 ml @ 0 mls/hr TITRATE IV 11/22/16 14:30 11/24/16 00:07 (Roxicodone) 5 mg Q4H PRN PO 11/22/16 14:30 (Dilaudid Pf Inj) 0.5 mg Q4H PRN IV PUSH 11/22/16 14:30 (Librium) 50 mg Q8HR PO 11/22/16 14:30 11/24/16 06:04 (Haldol Inj) 5 mg Q4H PRN IV 11/22/16 14:30 11/23/16 00:02 (Lactulose Liq) 15 ml TID PO 11/23/16 09:00 11/24/16 13:00 (Vitamin B1) 100 mg DAILY PO 11/23/16 09:00 11/24/16 07:45 (Folate) 1 mg DAILY PO 11/23/16 09:00 11/24/16 07:44 (Theragran) 1 tab DAILY PO 11/23/16 09:00 11/24/16 07:44 Levofloxacin 750 mg 750 mg DAILY PO 11/25/16 09:00 (Zosyn 3.375 Gm Premix) 50 ml @ 100 mls/hr Q6H IV 11/24/16 14:00 (SEROquel) 50 mg BID PO 11/24/16 14:15 Family History Patient denies psychiatric family history Social History Patient was born and raised in [place], he lives alone, is single, unemployed, highest level of education is 11th grade Physical Exam Vital Signs Vital Signs Date Time Temp Pulse Resp B/P Pulse Ox O2 Delivery O2 Flow Rate FiO2 11/24/16 12:00 99.0 97 22 105/54 95 11/24/16 08:02 21 11/23/16 20:53 Nasal Cannula 3.00 I/O 11/23/16 11/23/16 11/24/16 08:00 16:00 00:00 Intake Total 2589 ml 1413 ml Output Total 2600 ml 1400 ml Balance -11 ml 13 ml Lab Results BAL is or how denies 6, toxicology positive for cannabis, WBC 21.4, HBG 13.8, HCT 40.1, NA is 137, K3.8, creatinine 0.6, BUN 6, ALT 17, AST 23 Mental Status Examination Appearance Skinny man, poor hygiene, hospital [facility], irritable, oppositional, poorly cooperative Speech: Unremarkable Orientation: x3 Memory: Unremarkable Thought Process: Goal Directed Thought Content: Unremarkable Hallucination Type: None Suicidal Ideation: No (no specific plan) Homicidal Ideation: No Previous Homicide Attempts: No Insight: Poor Affect: Irritable, Oppositional Mood: Angry Motor Activity: Normal gait Assessment & Plan Problem List: (1) Alcohol abuse with alcohol-induced mood disorder Assessment & Plan: On psychiatric evaluation today patient is irritable, oppositional, demanding to be discharged, at some point he says that he has suicidal ideation, no specific plan, however in the other hand he wants to be discharged to a detox program. Suicidal ideation seems to be contradictory and manipulative and seems to be related with antisocial behavior. I don't think that the patient would benefit of psychiatric admission at this moment. He would really benefit more of detox and comprehensive rehabilitation program. Continue medical treatment as needed. Continue CIWA protocol, agree with Librium 50 mg 3 times a day. Will add Seroquel 50 mg twice a day to control behavior and decrease anxiety. We'll follow-up. ICD Code: F10.14 Assessment & Plan Estimated LOS: Jamie Mason MD November 24, 2016 14:39
[2016-11-25] MEDS ORDERED: LEVOFLOXACIN 750 MG TAB PO SCH (09:00)
== END 2016-11-24 13:45 | disposition left against medical advice (07) | DRG 208 ==
LOC: NEPE 23:21 → EDBD 11-22 02:53 → NEDA 11-22 02:53 → HIME 11-22 03:45
PROVIDERS: ADMIT Hospitalist; ATTEND Hospitalist
PROC: 0BH17EZ Insertion of Endotracheal Airway into Trachea, Via Natural or Artificial Opening (ICD-10-PCS; principal; 2016-11-22)
PROC: 5A1935Z Respiratory Ventilation, Less than 24 Consecutive Hours (ICD-10-PCS; 2016-11-22)
DX: J96.01 Acute respiratory failure with hypoxia (principal); J69.0 Pneumonitis due to inhalation of food and vomit; F10.231 Alcohol dependence with withdrawal delirium; R45.851 Suicidal ideations; Y90.8 Blood alcohol level of 240 mg/100 ml or more; B19.20 Unspecified viral hepatitis C without hepatic coma; R40.2432 Glasgow coma scale score 3-8, at arrival to emergency department; F32.9 Major depressive disorder, single episode, unspecified; F12.90 Cannabis use, unspecified, uncomplicated; Z59.0 Homelessness; Z72.811 Adult antisocial behavior
CPT/HCPCS: 31500; 36600; 51702; 70450; 71010; 80053; 80074; 80307; 81001; 82140; 82550; 82552; 82805; 82948; 83605; 83735; 84100; 85025; 87015; 87040; 87641; 93005; 94002; 94667; 96365; 96366; C9113; J0330; J1630; J1644; J2060; J2543; J3411; J3480; J7030; J7050